=== PATIENT | male | born 1960 | race Caucasian/White ===

== ENCOUNTER 2024-02-28 14:10 | Observation (INO) | payer OTHER, BC ==
[2024-02-28] MEDS: SODIUM CHLORIDE 0.9% 500 ML INFUS.BAG IV ONE (15:15)
[2024-02-28 15:35] LABS: POTASSIUM 4.3 mmol/L (3.5-5.1)
[2024-02-28 15:37] LABS: ALBUMIN 3.8 g/dl (3.4-5.0); BLOOD UREA NITROGEN 17.9 mg/dL (7-18)
[2024-02-28 15:41] LABS: BASO % 0.7 % (0-2.0); CREATININE 1.4 mg/dL (0.55-1.3); EOS % 0.9 % (0-4.5); HEMATOCRIT 39.9 % (35.4-49); HEMOGLOBIN 13.4 GM/dL (11.7-16.9); MCHC 33.5 g/dl (32.0-35.9); MEAN CELL VOLUME 89.4 fl (80-96); MEAN PLT VOLUME 8.8 fl (7.5-11.1); MONO % 7.9 % (3.8-10.2); NEUT % 76.5 % (42.8-82.8); PLATELET COUNT 233 10^3/uL (134-434); RBC 4.46 M/mm3 (4.00-5.60); RDW 13.2 % (11.9-15.9)
[2024-02-28 15:43] LABS: BILIRUBIN,TOTAL 0.6 mg/dL (0.2-1)
[2024-02-28] MEDS ORDERED: LACTATED RINGERS SOLUTION 1,000 ML/1,000 ML INFUS.BAG IV SCH (16:45)
[2024-02-28] MEDS: SODIUM CHLORIDE 1,000 ML IV SCH (17:12)
[2024-02-28 17:47] LABS: CHOLESTEROL 192 mg/dL (50-200)
[2024-02-28 17:48] LABS: LDL CHOLESTEROL (ONLY SJRH) 99 mg/dL (5-100)
[2024-02-28 17:51] LABS: HDL CHOLESTEROL 79 mg/dL (40-60)
[2024-02-28 20:30] VITALS: BMI 27.1
[2024-02-28 20:52] LABS: URINE APPEARANCE CLEAR; URINE BILIRUBIN NEGATIVE (NEGATIVE); URINE COLOR YELLOW; URINE GLUCOSE (UA) NEGATIVE (NEGATIVE); URINE KETONE NEGATIVE (NEGATIVE); URINE LEUK ESTERASE NEGATIVE (NEGATIVE); URINE NITRITE NEGATIVE (NEGATIVE); URINE PROTEIN NEGATIVE (NEGATIVE)
[2024-02-29 08:36] LABS: BASO % 0.6 % (0-2.0); EOS % 1.8 % (0-4.5); HEMATOCRIT 37.2 % (35.4-49); HEMOGLOBIN 12.7 GM/dL (11.7-16.9); LYMPH % 13.8 % (8-40); MCH 30.3 pg (25.7-33.7); MCHC 34.1 g/dl (32.0-35.9); MEAN PLT VOLUME 9.1 fl (7.5-11.1); MONO % 7.7 % (3.8-10.2); NEUT % 76.1 % (42.8-82.8); PLATELET COUNT 240 10^3/uL (134-434); RBC 4.18 M/mm3 (4.00-5.60); RDW 13.2 % (11.9-15.9); WHITE BLOOD COUNT 7.6 K/mm3 (4.0-10.0)
[2024-02-29 08:49] LABS: POTASSIUM 4.4 mmol/L (3.5-5.1)
[2024-02-29 08:53] LABS: ALBUMIN 3.3 g/dl (3.4-5.0); BLOOD UREA NITROGEN 12.8 mg/dL (7-18); CALCIUM 8.5 mg/dL (8.5-10.1)
[2024-02-29 08:56] LABS: PHOSPHOROUS 3.1 mg/dL (2.5-4.9)
[2024-02-29 08:57] LABS: BILIRUBIN,TOTAL 0.5 mg/dL (0.2-1); TOT PROT 6.2 g/dl (6.4-8.2)
[2024-02-29] MEDS: ENOXAPARIN NA (PORCINE) 40 MG/0.4 ML DISP.SYRIN SQ SCH (09:44)
[2024-02-29 18:59] VITALS: BP 140/82; PULSE 68; RESP 18; TEMP 98.4
== END 2024-02-29 19:20 | disposition home or self-care (01) ==
LOC: JER 14:10 → JERBED 16:22 → J4S 19:05
PROVIDERS: ADMIT Internal Medicine; ATTEND Internal Medicine
PROC: 3E023GC Introduction of Other Therapeutic Substance into Muscle, Percutaneous Approach (ICD-10-PCS; principal; 2024-02-28)
PROC: 3E0337Z Introduction of Electrolytic and Water Balance Substance into Peripheral Vein, Percutaneous Approach (ICD-10-PCS; 2024-02-28)
DX: H81.10 Benign paroxysmal vertigo, unspecified ear (principal); E86.0 Dehydration; R55 Syncope and collapse; N17.9 Acute kidney failure, unspecified
CPT/HCPCS: 0241U-QW; 36415; 70450-TC; 71045-TC-FY; 76775-TC; 80053; 80061; 81003; 82550; 82962; 83036; 83605; 83735; 83880; 84100; 84439; 84443; 84484; 85025; 93005; 93010; 93306-TC; 99285-25; G0378